=== PATIENT | male | born 1965 | race Caucasian/White ===

== ENCOUNTER 2016-07-30 10:59 | Emergency (ER) | payer OTHER ==
[~2016-07-30] VITALS: Ht 182.9 cm; Wt 93.4 kg
--- NOTE | 2016-07-30 11:05 | ED UPPER/LOWER EXTREMITY COMPL ---
History of Present Illness General Chief Complaint: Hand or Wrist Injury Stated Complaint: L HAND INJURY Source: patient Exam Limitations: no limitations Vital Signs & Intake/Output Vital Signs & Intake/Output Vital Signs Date Time Temp Pulse Resp B/P B/P Pulse O2 O2 Flow FiO2 Mean Ox Delivery Rate 07/30 1236 98.7 100 20 140/80 96 Room Air 07/30 1102 967.7 107 16 158/97 95 Room Air Allergies Coded Allergies: No Known Allergies (07/30/16) Reconcile Medications Atorvastatin Calcium 10 MG TABLET 1 TAB PO DAILY CHOLESTEROL (Reported) Prednisone 20 MG TABLET 1 TAB PO DAILY EAR INFECTION (Reported) Valsartan 80 MG TABLET 1 TAB PO DAILY HEART (Reported) Triage Note: PT STATES HE CRUSHED HIS MIDDLE FINGER LEFT HAND WHILE BUILDING A STONE WALL TODAY. Triage Nurses Notes Reviewed? yes Onset: Abrupt Duration: constant Timing: single episode today Severity: severe Severity Numbers: 9 Pain/Injury Location: Left: 3rd finger. Method of Injury: direct blow HPI: Patient is a 50-year-old male who presents to emergency room while building a stone fence today a large heavy stone rock fell on his distal aspect of his left third digit of his finger where he thought he heard a "pop" where suddenly 2 lacerations had occurred bleeding was controlled prior to arrival. Patient is right arm dominant. Patient took ibuprofen with no relief of symptoms. Patient 's tetanus is unknown. (EAGLE TERRELL) Past History Travel History Traveled to [place] past 21 day No Medical History Any Pertinent Medical History? see below for history Cardiovascular: hypertension, hyperlipidemia Tetanus Vaccine: Surgical History Surgical History: non-contributory Psychosocial History Who do you live with Spouse What is your primary language Tajik Tobacco Use: Never used ETOH Use: occasional use Illicit Drug Use: denies illicit drug use Family History Hx Contributory? No (EAGLE TERRELL) Review of Systems Review of Systems Constitutional: Reports: no symptoms. EENTM: Reports: no symptoms. Respiratory: Reports: no symptoms. Cardiovascular: Reports: no symptoms. Gastrointestinal/Abdominal: Reports: no symptoms. Genitourinary: Reports: no symptoms. Musculoskeletal: Reports: see HPI, joint pain. Skin: Reports: see HPI. Neurological/Psychological: Reports: no symptoms. Hematologic/Endocrine: Reports: see HPI, bleeding. Immunological: Reports: no symptoms. All Other Systems: Reviewed and Negative (EAGLE TERRELL) Physical Exam Physical Exam General Appearance: no apparent distress, alert, comfortable Neurologic/Tendon: normal sensation, normal motor functions, normal tendon functions, responds to pain, no evidence tendon injury, no pulse deficit Skin: normal color, warm/dry Comments: Well-developed well-nourished no apparent distress. HEENT: Atraumatic, extraocular motion intact Neck: Supple, no lymphadenopathy Back: Nontender Respiratory: No respiratory distress Neuro: Alert and oriented x3 Psych: Mood affect normal, normal memory normal judgment. Diagram Hands Front 1) Severe point tenderness noted with a #1- 2 CM LATERAL SUBCUTANEOUS LACERATION NOTED 2) 3 mm superficial laceration noted 3) 3 mm superficial laceration noted 4) No trauma to the nail Dermatomes intact full active range of motion noted with flexion and extension of third digit Capillary refill intact LESS THAN 2 SECONDS (EAGLE TERRELL) Progress Differential Diagnosis: arterial insufficiency, compartment syndrome, contusion, dislocation, DVT, fracture, gout, septic arthritis, sprain, tendon injury Plan of Care: Orders Procedure Date/time Status XRY-FINGERS, LEFT 07/30 1104 Active In total #8 sutures were applied Margins were revised No osseous injury was noted on x-ray No tendon deficit concerns (EAGLE TERRELL) Diagnostic Imaging: Viewed by Me: Radiology Read. Radiology Impression: no fracture Comments: PATIENT: OPAL NICOLAS JR PRESENT AGE: 50 PATIENT ACCOUNT NO: [id number] : 63 LOCATION: [facility] ORDERING PHYSICIAN: EAGLE GERARDO SERVICE DATE: 07/30/16 EXAM TYPE: RAD - XRY-FINGERS, LEFT EXAMINATION: XR FINGER, LEFT CLINICAL INFORMATION: Pain status-post crush injury to left third finger distal phalanx. COMPARISON: None. TECHNIQUE: Frontal, oblique and lateral views of the left third (middle) finger are submitted. FINDINGS: Bony alignment and mineralization are normal. No fracture or dislocation is seen. There is no convincing foreign body. There is a soft tissue laceration of the distal pad of the left third finger. IMPRESSION: No fracture, dislocation or foreign body is seen. DICTATED BY: LAURA GROVES MD DATE/TIME DICTATED:07/30/[address] VENDOR:CROW (EAGLE TERRELL) Departure Departure Disposition: HOME OR SELF CARE Condition: Stable Clinical Impression Primary Impression: Laceration of finger of left hand Referrals: MIKEY WEBB,LAURA Jones (PCP/Family) Additional Instructions: As discussed begin to apply the Xeroform and bandages and changed the dressings once a day to prevent infection apply this for the following 4 days then LEAVE WOUND area open to improve healing. If you note signs of infection redness, pain, swelling, discharge return to emergency room. Continue to use a finger splint for the following 2 days to improve healing Return to emergency room or follow-up with her primary care doctor in 7-10 days for suture removal. Begin [id number] ibuprofen for pain and inflammation Departure Forms: Customer Survey General Discharge Information (EAGLE TERRELL) PA/PLATE SHOP HELPER Co-Sign Statement Statement: ED Attending supervision documentation- [] I saw and evaluated the patient. I have also reviewed all the pertinent lab results and diagnostic results. I agree with the findings and the plan of care as documented in the PA's/PLATE SHOP HELPER's documentation. [X] I have reviewed the ED Record and agree with the PA's/PLATE SHOP HELPER's documentation. [] Additions or exceptions (if any) to the PAs/PLATE SHOP HELPER's note and plan are summarized below: [] (LUCILLE WEBB,KARELY Lyons) Procedures Laceration/Wound Repair Laceration/Wound Repair: 1 Wound Location: upper extremity Wound's Depth, Shape: linear, subcutaneous Wound Length (cm): 0.3 Wound Explored: clean, no foreign body removed, irrigated extensively Irrigated w/ Saline (ccs): 300 Betadine Prep? Yes Anesthesia: 1% lidocaine Volume Anesthetic (ccs): 1 Wound Repaired With: sutures Suture Size/Type: 6:0 Number of Sutures: 1 Layer Closure? No Laceration/Wound Repair: 2 Wound Location: upper extremity (LEFT 3RD DIGIT) Wound's Depth, Shape: linear, subcutaneous Wound Length (cm): 0.5 Wound Explored: clean, no foreign body removed, irrigated extensively Irrigated w/ Saline (ccs): 360 Betadine Prep? Yes Anesthesia: 1% lidocaine Volume Anesthetic (ccs): 3 Wound Repaired With: sutures Suture Size/Type: 6:0 Number of Sutures: 2 Layer Closure? No Laceration/Wound Repair: 3 Wound Location: upper extremity (LEFT 3RD DIGIT) Wound's Depth, Shape: irregular, subcutaneous Wound Length (cm): 2 Wound Explored: clean, no foreign body removed, irrigated extensively Irrigated w/ Saline (ccs): 360 Betadine Prep? Yes Anesthesia: 1% lidocaine Volume Anesthetic (ccs): 5 Wound Repaired With: sutures Suture Size/Type: 5:0 Number of Sutures: 5 Layer Closure? No Progress: Initially using sterile technique and Betadine a digital block was performed to the left third digit In total #8 sutures were placed Margins were revised patient tolerated well Xeroform gauze and finger split was applied pre-and post-neurovascular was intact (EAGLE TERRELL)
[2016-07-30] MEDS ORDERED: ATORVASTATIN CA10 M1 PO (11:21)
[2016-07-30] MEDS ORDERED: PREDNISONE20 M1 PO (11:21)
[2016-07-30] MEDS ORDERED: VALSARTAN80 M1 PO (11:21)
--- NOTE | 2016-07-30 12:29 | RADIOLOGY REPORT ---
EXAMINATION: XR FINGER, LEFT CLINICAL INFORMATION: Pain status-post crush injury to left third finger distal phalanx. COMPARISON: None. TECHNIQUE: Frontal, oblique and lateral views of the left third (middle) finger are submitted. FINDINGS: Bony alignment and mineralization are normal. No fracture or dislocation is seen. There is no convincing foreign body. There is a soft tissue laceration of the distal pad of the left third finger. IMPRESSION: No fracture, dislocation or foreign body is seen.
[2016-07-30 12:36] VITALS: BP 140/80
== END 2016-07-30 12:37 ==
LOC: ERH 10:59
DX: S61.213A Laceration without foreign body of left middle finger without damage to nail, initial encounter (principal); W23.0XXA Caught, crushed, jammed, or pinched between moving objects, initial encounter; Y93.H9 Activity, other involving exterior property and land maintenance, building and construction
CPT/HCPCS: 73140-LT; 90471; 90714; 96372

== ENCOUNTER 2016-08-08 18:21 | Emergency (ER) | payer OTHER ==
[~2016-08-08 18:21] MED LIST: ATORVASTATIN CA10 M1 PO; PREDNISONE20 M1 PO; VALSARTAN80 M1 PO
[2016-08-08 18:54] VITALS: BP 147/88
--- NOTE | 2016-08-08 18:56 | ED SKIN/ALLERGY COMPLAINT ---
History of Present Illness General Chief Complaint: Suture Removal/Wound Recheck Stated Complaint: SUTURE REMOVAL Source: patient, old records Exam Limitations: no limitations Vital Signs & Intake/Output Vital Signs & Intake/Output Vital Signs Date Time Temp Pulse Resp B/P B/P Pulse O2 O2 Flow FiO2 Mean Ox Delivery Rate 08/08 1854 98.0 81 16 147/88 99 Room Air Allergies Coded Allergies: No Known Allergies (07/30/16) Reconcile Medications Atorvastatin Calcium 10 MG TABLET 1 TAB PO DAILY CHOLESTEROL (Reported) Prednisone 20 MG TABLET 1 TAB PO DAILY EAR INFECTION (Reported) Valsartan 80 MG TABLET 1 TAB PO DAILY HEART (Reported) Triage Nurses Notes Reviewed? yes Onset: Abrupt Duration: better Timing: recent history Severity: mild Severity Numbers: 1 Location: extremities HPI: Patient is a 50-year-old male who presents emergency room with concerns of a wound recheck and suture removal in which she had #8 sutures applied on July 30 to the distal aspect of his left third digit. Patient denies any fever chills swelling redness pain discharged to the laceration site. (EAGLE TERRELL) Past History Travel History Traveled to [place] past 21 day No Medical History Any Pertinent Medical History? see below for history Cardiovascular: hypertension, hyperlipidemia Tetanus Vaccine: 07/30/16 Surgical History Surgical History: non-contributory Psychosocial History Who do you live with Spouse What is your primary language Bulgarian Family History Hx Contributory? No (EAGLE TERRELL) Review of Systems Review of Systems Constitutional: Reports: no symptoms. EENTM: Reports: no symptoms. Respiratory: Reports: no symptoms. Cardiovascular: Reports: no symptoms. GI: Reports: no symptoms. Genitourinary: Reports: no symptoms. Musculoskeletal: Reports: no symptoms. Skin: Reports: see HPI. Neurological/Psychological: Reports: no symptoms. Hematologic/Endocrine: Reports: no symptoms. Immunologic/Allergic: Reports: no symptoms. All Other Systems: Reviewed and Negative (EAGLE TERRELL) Physical Exam Physical Exam General Appearance: no apparent distress, alert, comfortable Skin: intact, normal color, warm/dry Skin Problem Location: upper extremities Comments: Well-developed well-nourished no apparent distress. HEENT: Atraumatic, extraocular motion intact Neck: Supple, no lymphadenopathy Back: Nontender Respiratory: No respiratory distress Extremities: No edema, full range of motion Neuro: Alert and oriented x3 Psych: Mood affect normal, normal memory normal judgment. Diagram Hands, Palmar: 1) Noted 3 well-healing lacerations with #8 intact sutures in total Margins revised no swelling no discharge full active range of motion no erythema (EAGLE TERRELL) Progress Differential Diagnosis: abscess/cellulitis, allergic reaction, FOREIGN BODY RETENTION, FRACTURE, CELLULITIS Plan of Care: #8 in total sutures removed successfully bacitracin and bandage was applied no signs of infection at this time. Full active range of motion noted (EAGLE TERRELL) Departure Departure Disposition: HOME OR SELF CARE Condition: Stable Clinical Impression Primary Impression: Visit for wound check Secondary Impressions: Visit for suture removal Referrals: MIKEY WEBB,LAURA Jones (PCP/Family) Additional Instructions: As discussed begin to apply bacitracin WITH BANDAID to the area once a day for the following 2 days then the area open dry and clean. If you note signs of infection redness, pain, swelling, discharge return to emergency room immediately. Departure Forms: Customer Survey General Discharge Information (EAGLE TERRELL) PA/SPARE PERSON Co-Sign Statement Statement: ED Attending supervision documentation- [] I saw and evaluated the patient. I have also reviewed all the pertinent lab results and diagnostic results. I agree with the findings and the plan of care as documented in the PA's/SPARE PERSON's documentation. [X] I have reviewed the ED Record and agree with the PA's/SPARE PERSON's documentation. [] Additions or exceptions (if any) to the PAs/SPARE PERSON's note and plan are summarized below: [] (JONI WEBB,TANNA)
== END 2016-08-08 19:12 ==
LOC: ERH 18:21
DX: S61.213A Laceration without foreign body of left middle finger without damage to nail, initial encounter (principal); X58.XXXA Exposure to other specified factors, initial encounter; Y92.9 Unspecified place or not applicable; Y93.9 Activity, unspecified
CPT/HCPCS: 99281